=== PATIENT | female | born 1995 | race American Indian/Alaskan Native ===

== ENCOUNTER 2019-07-24 10:34 | Emergency (ER) | payer MEDICAID ==
--- NOTE | 2019-07-24 15:04 | Emergency Department Report ---
ED Psych HPI - General Chief Complaint: Psych Stated Complaint: 1013/MENTAL HEALTH EVAL Time Seen by Provider: 07/24/19 13:10 Source: EMS Mode of arrival: Ambulatory Limitations: Other - History of Present Illness Initial Comments: 23-year-old female the past medical history schizophrenia bipolar presents to the hospital from [facility] for medical clearance. She presents with a signed 02/12/2010 the patient is unable to care for self and exhibiting erratic behaviors. When asked why she is here patient states forgot to save her and she is trying to get back to the [facility] and they sent her here. Patient denies any physical complaints. She claims to be compliant with her medications and presents with 2 bottles of of oxcarbamazepine. Patient's behavior is erratic and impulsive but at this time she is able to be verbally de-escalated. No physical complaints reported - Related Data Home Medications Medication Instructions Recorded Confirmed Last Taken OXcarbazepine [Trileptal] 300 mg PO BID 07/24/19 07/24/19 Unknown Allergies Allergy/AdvReac Type Severity Reaction Status Date / Time Unable to Assess Allergy Unverified 07/24/19 13:25 ED Review of Systems ROS: Stated complaint: 1013/MENTAL HEALTH EVAL Other details as noted in HPI Comment: Unobtainable due to pts medical conditions ED Past Medical Hx - Past Medical History Additional medical history: UNABLE TO OBTAIN - Surgical History Additional Surgical History: UNABLE TO OBTAIN - Social History Smoking Status: Never Smoker Substance Use Type: None - Medications Home Medications: Home Medications Medication Instructions Recorded Confirmed Last Taken Type OXcarbazepine [Trileptal] 300 mg PO BID 07/24/19 07/24/19 Unknown History ED Physical Exam - General Limitations: No Limitations - Other Other exam information: General: No acute distress Head: Atraumatic Eyes: normal appearance ENT: Moist mucous membranes Neck: Normal appearance, no midline tenderness Chest: Clear to auscultation bilaterally CV: Regular rate and rhythm Abdomen: Soft, normal bowel sounds, nontender, nondistended, no rebound or guarding Back: Normal inspection Extremity: Normal inspection, full range of motion Neuro: Alert O x 3, no facial asymmetry, speech clear, no gross motor sensory deficit Psych: Paranoid, anxious, delusional Skin: No rash ED Course Vital Signs 07/24/19 07/24/19 07/24/19 13:33 20:00 20:22 Temperature 98.6 F 98.1 F Pulse Rate 60 82 Respiratory 20 20 18 Rate Blood Pressure 129/77 128/73 [Left] O2 Sat by Pulse 100 98 98 Oximetry ED Medical Decision Making - Lab Data Result diagrams: 07/24/19 14:50 07/24/19 14:50 Critical care attestation.: If time is entered above; I have spent that time in minutes in the direct care of this critically ill patient, excluding procedure time. ED Disposition Clinical Impression: Psychosis, Medical clearance for psychiatric admission Disposition: DC/TX-65 PSY HOSP/PSY UNIT Is pt being admited?: No Condition: Stable
[2019-07-24 15:20] LABS: Bacteria,Urine 1+ /HPF (Negative); Bilirubin,Urine NEG (Negative); Blood,Urine NEG (Negative); Color,Urine Yellow (Yellow); Mucus,Urine FEW /HPF; Protein,Urine <15 mg/dL mg/dL (Negative); Urobilinogen,Urine < 2.0 mg/dL (<2.0)
[2019-07-24 15:28] LABS: Amphetamine Screen,Urine PRESUMPTIVE NEGATIVE; Benzodiazepines Screen,Urine PRESUMPTIVE NEGATIVE; Cocaine Screen,Urine PRESUMPTIVE NEGATIVE; Methadone Screen,Urine PRESUMPTIVE NEGATIVE; Opiate Screen,Urine PRESUMPTIVE NEGATIVE
[2019-07-24 15:44] LABS: Cannabinoid Screen,Urine PRESUMPTIVE POSITIVE
[2019-07-24 15:47] LABS: Basophils % (Auto) 0.3 % (0.0-1.8); Hematocrit 38.1 % (30.3-42.9); Hemoglobin 12.5 gm/dl (10.1-14.3); Lymphocytes # (Auto) 1.2 K/mm3 (1.2-5.4); Lymphocytes % (Auto) 21.1 % (13.4-35.0); Mean Corpuscular HGB Conc 33 % (30-34); Mean Corpuscular Volume 84 fl (79-97); Monocytes # (Auto) 0.5 K/mm3 (0.0-0.8); Platelet Count 199 K/mm3 (140-440); Red Blood Count 4.53 M/mm3 (3.65-5.03); Red Cell Distribution Width 12.8 % (13.2-15.2)
[2019-07-24 15:53] LABS: BUN/Creatinine Ratio 3; Blood Urea Nitrogen 2 mg/dL (7-17); Hemolysis Index 4
[2019-07-24] MEDS ORDERED: ZIPRASIDONE MESYLATE 20 MG VIAL IM ONE (18:09)
[2019-07-24 20:23] VITALS: BP 128/73
== END 2019-07-24 20:30 ==
LOC: ED 10:34
DX: F29 Unspecified psychosis not due to a substance or known physiological condition (principal)
CPT/HCPCS: 36415; 80048; 80307; 81001; 84703; 85025; 99285; J3486; 80320; G0480

== ENCOUNTER 2019-08-23 01:00 | Emergency (ER) | payer MEDICARE ==
[2019-08-23 01:23] LABS: Bilirubin,Urine NEG (Negative); Blood,Urine NEG (Negative); Color,Urine Colorless (Yellow); Protein,Urine <15 mg/dL mg/dL (Negative); Urobilinogen,Urine < 2.0 mg/dL (<2.0); WBC,Urine < 1.0 /HPF (0.0-6.0)
[2019-08-23] MEDS ORDERED: ZIPRASIDONE MESYLATE 20 MG VIAL IM ONE ×2 (01:24→01:25)
[2019-08-23 01:28] LABS: RBC,Urine < 1.0 /HPF (0.0-6.0)
--- NOTE | 2019-08-23 01:31 | Emergency Department Report ---
<ELIZABETHMIKEY - Last Filed: 08/23/19 11:38> ED Psych HPI - General Chief Complaint: Psych Stated Complaint: MH EVAL/AMS Time Seen by Provider: 08/23/19 01:27 - Related Data Home Medications Medication Instructions Recorded Confirmed Last Taken OXcarbazepine [Trileptal] 300 mg PO BID 07/24/19 08/23/19 Unknown risperiDONE [RisperDAL] 3 mg PO QHS 08/23/19 08/23/19 Unknown Allergies Allergy/AdvReac Type Severity Reaction Status Date / Time Unable to Assess Allergy Unverified 07/24/19 13:25 ED Past Medical Hx - Medications Home Medications: Home Medications Medication Instructions Recorded Confirmed Last Taken Type OXcarbazepine [Trileptal] 300 mg PO BID 07/24/19 08/23/19 Unknown History risperiDONE [RisperDAL] 3 mg PO QHS 08/23/19 08/23/19 Unknown History ED Course - Reevaluation(s) Reevaluation #3: 08/23/19 07:49 Nursing team requesting PRN medications for hyperverbal behavior, unable to verbally de-escalate the patient or calm her down. Haldol, Ativan ordered for as needed 08/23/19 11:38 Patient on a 1013, [facility] The patient is awake, and quite disorganized at this time ED Medical Decision Making - Lab Data Result diagrams: 08/23/19 01:26 08/23/19 01:26 ED Disposition Clinical Impression: Acute psychosis, Agitation Disposition: DC/TX-65 PSY HOSP/PSY UNIT Condition: Stable Referrals: PRIMARY CARE, [Primary Care Provider] - 3-5 Days <JOSEE LI III - Last Filed: 08/24/19 04:06> ED Psych HPI - General Source: patient Mode of arrival: Ambulatory Limitations: Altered Mental Status - History of Present Illness Initial Comments: Patient is a 23-year-old female that presents emergency room with psychotic behaviors. Patient has been yelling at her boyfriend and her family. Patient was also seen throwing things and being on the floor. Patient sister is with patient explaining. Patient is agitated. Patient states she is fine. Patient states she is okay to go home. Complaint: altered mental status, other -: Sudden Associated Psychiatric Symptoms: racing thoughts ED Review of Systems ROS: Stated complaint: MH EVAL/AMS Other details as noted in HPI Constitutional: denies: chills, fever Eyes: denies: eye pain, eye discharge, vision change ENT: denies: ear pain, throat pain Respiratory: denies: cough, shortness of breath, wheezing Cardiovascular: denies: chest pain, palpitations Endocrine: no symptoms reported Gastrointestinal: denies: abdominal pain, nausea, diarrhea Genitourinary: denies: urgency, dysuria, discharge Musculoskeletal: denies: back pain, joint swelling, arthralgia Skin: denies: rash, lesions Neurological: denies: headache, weakness, paresthesias Psychiatric: denies: anxiety, depression Hematological/Lymphatic: denies: easy bleeding, easy bruising ED Past Medical Hx - Past Medical History Previous Medical History?: Yes Hx Psychiatric Treatment: Yes (schizophrenia, bipolar) Additional medical history: UNABLE TO OBTAIN - Surgical History Past Surgical History?: No Additional Surgical History: UNABLE TO OBTAIN - Social History Smoking Status: Current Every Day Smoker ED Physical Exam - General Limitations: No Limitations General appearance: alert, in no apparent distress - Head Head exam: Present: atraumatic, normocephalic - Eye Eye exam: Present: normal appearance - ENT ENT exam: Present: mucous membranes moist - Neck Neck exam: Present: normal inspection - Respiratory Respiratory exam: Present: normal lung sounds bilaterally. Absent: respiratory distress, wheezes, rales - Cardiovascular Cardiovascular Exam: Present: regular rate, normal rhythm. Absent: systolic murmur, diastolic murmur, rubs, gallop - GI/Abdominal GI/Abdominal exam: Present: soft, normal bowel sounds. Absent: distended, tenderness, guarding - Extremities Exam Extremities exam: Present: normal inspection - Back Exam Back exam: Present: normal inspection - Neurological Exam Neurological exam: Present: alert, oriented X3 - Psychiatric Psychiatric exam: Present: agitated, anxious - Expanded Psychiatric Exam Expanded Focused psych exam: Present: pressured speech, internal stimuli, psychomotor agitation, restlessness, loose associations - Skin Skin exam: Present: warm, dry, intact, normal color. Absent: rash ED Course Vital Signs 08/23/19 08/23/19 01:07 07:52 Temperature 98.3 F 97.8 F Pulse Rate 96 H Respiratory 20 20 Rate Blood Pressure 125/80 Blood Pressure 118/73 [Right] O2 Sat by Pulse 100 Oximetry - Reevaluation(s) Reevaluation #1: Initial evaluation done. Patient placed on a 1013 for acute psychosis and agitation. Patient will be given Geodon and Ativan 08/23/19 01:31 Reevaluation #2: I discussed all results and clinical findings with patient. I discussed plan of care with patient. Patient agrees with plan of care. Patient is medically cleared. Patient will remain in the ER on 1013 and and as an ER hold. Patient's final disposition will come from our psychiatric team. 08/23/19 03:32 ED Medical Decision Making - Lab Data Result diagrams: 08/23/19 01:26 08/23/19 01:26 - Medical Decision Making Patient is a 23-year-old female that presents emergency room with bizarre behavior, agitation and acute psychosis. Patient had labs done for medical clearance. Patient's labs are essentially unremarkable and did not require a medical admission. Patient is medically cleared. Patient will remain in the ER on her 1013 and as an ER hold until she is cleared by our psychiatry team. Patient is final disposition will come from our mental health and psychiatry team. - Differential Diagnosis Acute psychosis, abnormal behavior, agitation Critical care attestation.: If time is entered above; I have spent that time in minutes in the direct care of this critically ill patient, excluding procedure time. ED Disposition Is pt being admited?: No Does the pt Need Aspirin: No Time of Disposition: 03:33
[2019-08-23 01:32] LABS: Amphetamine Screen,Urine PRESUMPTIVE NEGATIVE; Benzodiazepines Screen,Urine PRESUMPTIVE NEGATIVE; Cocaine Screen,Urine PRESUMPTIVE NEGATIVE; Methadone Screen,Urine PRESUMPTIVE NEGATIVE; Opiate Screen,Urine PRESUMPTIVE NEGATIVE
[2019-08-23 01:54] LABS: Basophils % (Auto) 0.5 % (0.0-1.8); Eosinophils % (Auto) 0.3 % (0.0-4.3); Hematocrit 35.5 % (30.3-42.9); Hemoglobin 12.2 gm/dl (10.1-14.3); Lymphocytes # (Auto) 1.5 K/mm3 (1.2-5.4); Lymphocytes % (Auto) 21.8 % (13.4-35.0); Mean Corpuscular HGB Conc 34 % (30-34); Mean Corpuscular Volume 82 fl (79-97); Monocytes # (Auto) 0.6 K/mm3 (0.0-0.8); Monocytes % (Auto) 8.3 % (0.0-7.3); Platelet Count 194 K/mm3 (140-440); Red Blood Count 4.35 M/mm3 (3.65-5.03); Red Cell Distribution Width 12.7 % (13.2-15.2)
[2019-08-23 01:54] LABS: Cannabinoid Screen,Urine PRESUMPTIVE POSITIVE
[2019-08-23 01:55] LABS: BUN/Creatinine Ratio 8; Blood Urea Nitrogen 5 mg/dL (7-17); Calcium 9.4 mg/dL (8.4-10.2); Hemolysis Index 8
[2019-08-23] MEDS ORDERED: HALOPERIDOL LACTATE 5 MG/1 ML INJ IM PRN (07:44)
[2019-08-23] MEDS ORDERED: LORazepam 2 MG/ML VIAL IM PRN (07:44)
[2019-08-23 07:54] VITALS: BP 118/73
[2019-08-23] MEDS ORDERED: OXcarbazepine 150 MG TAB PO ONE (08:54)
[2019-08-23] MEDS ORDERED: OXcarbazepine 150 MG TAB PO SCH (10:00)
== END 2019-08-23 12:52 ==
LOC: EEVIPCON 01:00 → ED 01:00
DX: F23 Brief psychotic disorder (principal); R45.1 Restlessness and agitation; F17.200 Nicotine dependence, unspecified, uncomplicated
CPT/HCPCS: 36415; 80048; 80307; 81001; 85025; 96372; 99285; J1630; J2060; J3486; 80320; G0480